=== PATIENT | female | born 1990 | race African-American/Black ===

== ENCOUNTER 2019-02-14 16:24 | Outpatient (CLI) | payer MEDICAID ==
[2019-02-14] MEDS ORDERED: RINGERS SOLUTION,LACTATED 1,000 ML IV PRN (17:12)
[2019-02-14] MEDS ORDERED: PROMETHAZINE HCL INJ 25 MG/1 ML VIAL IV ONE (17:12)
[2019-02-14] MEDS ORDERED: RINGERS SOLUTION,LACTATED 1,000 ML IV ONE (17:12)
[2019-02-14] MEDS ORDERED: PROMETHAZINE HCL INJ 25 MG/1 ML VIAL ONE (17:21)
[2019-02-14 17:28] LABS: APPEARANCE,URINE SLIGHTLY-CLOUDY; BILIRUBIN,URINE NEGATIVE (NEGATIVE); COLOR,URINE YELLOW; GLUCOSE, URINE NEGATIVE (NEGATIVE); KETONES,URINE NEGATIVE (NEGATIVE); LEUKOCYTE ESTERASE,URINE TRACE (NEGATIVE); NITRITE,URINE NEGATIVE (NEGATIVE); PROTEIN,URINE NEGATIVE (NEGATIVE); URINE SPECIFIC GRAVITY 1.021
[2019-02-14 18:05] LABS: URINE AMPHETAMINES SCREEN NEGATIVE; URINE BARBITURATES SCREEN NEGATIVE; URINE BENZODIAZEPINES SCREEN NEGATIVE; URINE COCAINE SCREEN NEGATIVE; URINE MARIJUANA (THC) SCREEN NEGATIVE; URINE METHADONE SCREEN NEGATIVE; URINE PHENCYCLIDINE SCREEN NEGATIVE
== END 2019-02-14 18:54 | disposition home or self-care (01) ==
LOC: LC 16:24
PROVIDERS: ATTEND Obstetrics & Gynecology
PROC: 4A1HXCZ Monitoring of Products of Conception, Cardiac Rate, External Approach (ICD-10-PCS; principal; 2019-02-14)
DX: O30.003 Twin pregnancy, unspecified number of placenta and unspecified number of amniotic sacs, third trimester (principal); O99.283 Endocrine, nutritional and metabolic diseases complicating pregnancy, third trimester; E86.0 Dehydration; O21.2 Late vomiting of pregnancy; Z3A.34 34 weeks gestation of pregnancy
CPT/HCPCS: 59025; 81001; 80307; J2550

== ENCOUNTER 2019-02-21 16:08 | Inpatient (IN) | payer MEDICAID ==
--- NOTE | 2019-02-21 16:37 | Non Stress Test Report ---
Non Stress Test Datetime Report Generated by CPN: 02/21/2019 16:37 DEMOGRAPHIC Test Number: 1 EGA NST: 34.3 INDICATION Indication for Study: Multiple Gestation; Ordered by Provider VITAL SIGNS Temperature - NST: 97.7 Pulse - NST: 90 RESP - NST: 20 NBPSYS NST: 112 NBPDIA NST: 69 MONITORING Monitor Explained: Monitor Explained; Test Explained; Patient Verbalized Understanding Time on Monitor: 02/14/2019 16:45 Time off Monitor: 02/14/2019 18:50 NST Duration: 125 NST INTERVENTIONS NST Interventions: IV Fluids; Reposition Patient Physician Notified NST: Dr Abdi BABY A: [id number] BABY A Movement : Present Contraction Frequency : occ FHR Baseline : 145 Accelerations : 15X15 Decelerations : None Variability : Moderate 6-25bpm NST Review: Meets Criteria for Reactive NST NST Review and Verified By : Imelda Camp RNC NST Results: Reactive BABY B Movement: Present FHR Baseline: 135 Accelerations: 15X15 Decelerations: None Variability: Moderate 6-25bpm NST Review: Meets Criteria for Reactive NST NST Results: Reactive NST COMMENTS NST Comments: Baby B strip with broken tracing when accels. Reviewed by Dr Abdi, both A_B reactive NST REPORT Report Trigger: Send Report
[2019-02-21 16:44] LABS: APPEARANCE,URINE CLEAR; BILIRUBIN,URINE NEGATIVE (NEGATIVE); COLOR,URINE YELLOW; GLUCOSE, URINE NEGATIVE (NEGATIVE); KETONES,URINE NEGATIVE (NEGATIVE); LEUKOCYTE ESTERASE,URINE NEGATIVE (NEGATIVE); NITRITE,URINE NEGATIVE (NEGATIVE); PROTEIN,URINE NEGATIVE (NEGATIVE); URINE SPECIFIC GRAVITY 1.015; UROBILINOGEN,URINE NEGATIVE mg/dL (<2.0)
[2019-02-21 17:07] LABS: URINE AMPHETAMINES SCREEN NEGATIVE; URINE BARBITURATES SCREEN NEGATIVE; URINE BENZODIAZEPINES SCREEN NEGATIVE; URINE COCAINE SCREEN NEGATIVE; URINE MARIJUANA (THC) SCREEN NEGATIVE; URINE METHADONE SCREEN NEGATIVE; URINE PHENCYCLIDINE SCREEN NEGATIVE
[2019-02-21] MEDS ORDERED: GLUCAGON,HUMAN RECOMB 1 MG INJ SUBCUT PRN (19:30)
[2019-02-21] MEDS ORDERED: DEXTROSE 40% GEL 15 GM TUBE PO PRN ×2 (19:30)
[2019-02-21] MEDS ORDERED: DEXTROSE 50%-WATER 25 GM/50 ML DISP.SYRIN IV PRN ×2 (19:30)
[2019-02-21] MEDS ORDERED: AZITHROMYCIN 500 MG in DEXTROSE 5%-WATER 250 ML IV PRN (19:32)
[2019-02-21] MEDS ORDERED: AZITHROMYCIN INJ 500 MG VIAL IV ONE (19:34)
[2019-02-21] MEDS ORDERED: CITRIC ACID/SODIUM CITRATE ORAL SOLN 15 ML UDCUP ONE (19:34)
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
--- NOTE | 2019-02-21 19:52 | RADIOLOGY REPORT (SQ) ---
EXAM DESCRIPTION: U/S PROFILE W/O STRESS; U/S [id number] + EACH ADDIT GEST COMPLETED DATE/TIME: 02/21/2019 7:05 pm REASON FOR STUDY: DC/DA TIUP, NR baby A, growth restriction; BPP TWINS COMPARISON: None. TECHNIQUE: Limited husain-scale realtime and static images of the fetus to measure specified parameter s. LIMITATIONS: None. FINDINGS: Fetus a: HEART RATE: 143 beats per minute. TESHA: 10.1 cm. BREATHING MOVEMENT: 2 points. MOVEMENT: 2 points. POSTURE AND TONE: 2 points. QUALITATIVE TESHA: 2 points. OTHER: Breech presentation. Fetus B: HEART RATE: 149 beats per minute. TESHA: 11.1 cm. BREATHING MOVEMENT: 2 points. MOVEMENT: 2 points. POSTURE AND TONE: 2 points. QUALITATIVE TESHA: 2 points. OTHER: Breech presentation. IMPRESSION: BIOPHYSICAL PROFILE: 8/8. For for both fetus a and fetus B. Trimester of : Third - 28 weeks to delivery COMMENT: BREATHING MOVEMENTS: 2 POINTS: PRESENT 0 POINTS: ABSENT MOTION: 2 POINTS: PRESENT 0 POINTS: ABSENT TONE: 2 POINTS: PRESENT 0 POINTS: ABSENT AMNIOTIC FLUID VOLUME: 2 POINTS: LARGEST POCKET GREATER THAN 2 CM DEPTH. 0 POINTS: NO POCKET OF 2 CM. TECHNICAL DOCUMENTATION: JOB ID: [id number] [employer]- All Rights Reserved Reading location - IP/workstation name: [email or web address]
--- NOTE | 2019-02-21 19:52 | RADIOLOGY REPORT (SQ) ---
EXAM DESCRIPTION: U/S PROFILE W/O STRESS; U/S [id number] + EACH ADDIT GEST COMPLETED DATE/TIME: 02/21/2019 7:05 pm REASON FOR STUDY: DC/DA TIUP, NR baby A, growth restriction; BPP TWINS COMPARISON: None. TECHNIQUE: Limited husain-scale realtime and static images of the fetus to measure specified parameter s. LIMITATIONS: None. FINDINGS: Fetus a: HEART RATE: 143 beats per minute. TESHA: 10.1 cm. BREATHING MOVEMENT: 2 points. MOVEMENT: 2 points. POSTURE AND TONE: 2 points. QUALITATIVE TESHA: 2 points. OTHER: Breech presentation. Fetus B: HEART RATE: 149 beats per minute. TESHA: 11.1 cm. BREATHING MOVEMENT: 2 points. MOVEMENT: 2 points. POSTURE AND TONE: 2 points. QUALITATIVE TESHA: 2 points. OTHER: Breech presentation. IMPRESSION: BIOPHYSICAL PROFILE: 8/8. For for both fetus a and fetus B. Trimester of : Third - 28 weeks to delivery COMMENT: BREATHING MOVEMENTS: 2 POINTS: PRESENT 0 POINTS: ABSENT MOTION: 2 POINTS: PRESENT 0 POINTS: ABSENT TONE: 2 POINTS: PRESENT 0 POINTS: ABSENT AMNIOTIC FLUID VOLUME: 2 POINTS: LARGEST POCKET GREATER THAN 2 CM DEPTH. 0 POINTS: NO POCKET OF 2 CM. TECHNICAL DOCUMENTATION: JOB ID: [id number] [employer]- All Rights Reserved Reading location - IP/workstation name: [email or web address]
[2019-02-21] MEDS ORDERED: LIDOCAINE 2% INJ-PF (20 MG/ML) 10 ML AMPUL ONE ×2 (19:56→20:40)
[2019-02-21] MEDS ORDERED: OXYTOCIN 10 UNIT/ML VIAL ONE (19:57)
[2019-02-21] MEDS ORDERED: FENTANYL CITRATE INJ/PF 100 MCG/2 ML AMPUL ONE (19:57)
[2019-02-21] MEDS ORDERED: EPHEDRINE SULFATE INJ 50 MG/1 ML AMPULE ONE ×2 (19:57→20:05)
[2019-02-21] MEDS ORDERED: KETOROLAC TROMETHAMINE INJ/PF 30 MG/1 ML SDV ONE (19:57)
[2019-02-21] MEDS ORDERED: MIDAZOLAM 2 MG/2 ML INJ ONE (19:58)
[2019-02-21] MEDS ORDERED: ONDANSETRON HCL INJ/PF 4 MG/2 ML SDV ONE (19:58)
[2019-02-21] MEDS ORDERED: OXYTOCIN/NORMAL SALINE 20 UNIT/1,000 ML RTUINJ ONE (19:58)
[2019-02-21] MEDS ORDERED: ACETAMINOPHEN 1,000 MG/100 ML RTUPB IV ONE (19:58)
[2019-02-21 20:03] LABS: ABSOLUTE EOSINOPHILS # (AUTO) 0.2 10^3/uL (0.0-0.6); ABSOLUTE LYMPHOCYTES (AUTO) 2.8 10^3/uL (0.5-4.7); ABSOLUTE NEUT (AUTO) 7.4 10^3/uL (1.7-8.2); BASOPHILS % (AUTO) 0.2 % (0-2); EOSINOPHILS % (AUTO) 1.8 % (0-6); HEMATOCRIT 34.2 % (36.0-47.0); HEMOGLOBIN 11.4 g/dL (12.0-15.5); LYMPHOCYTES % (AUTO) 24.5 % (13-45); MEAN CORPUSCULAR HEMOGLOBIN 29.3 pg (27.0-33.4); MEAN CORPUSCULAR HGB CONC 33.3 g/dL (32.0-36.0); MEAN CORPUSCULAR VOLUME 88 fl (80-97); MONOCYTES % (AUTO) 8.5 % (3-13); PLATELET COUNT 189 10^3/uL (150-450); RED CELL DISTRIBUTION WIDTH 13.5 % (11.5-14.0); TOTAL CELLS COUNTED % (AUTO) 100 %; WHITE BLOOD COUNT 11.3 10^3/uL (4.0-10.5)
[2019-02-21] MEDS ORDERED: BUPIVACAINE HCL 0.5 % INJ/PF 30 ML SDV ONE (20:14)
[2019-02-21] MEDS ORDERED: MISOPROSTOL 0.2 MG TABLET ONE (20:44)
[2019-02-21 21:20] LABS: RUBELLA INTERPRETATION POSITIVE
[2019-02-21] MEDS ORDERED: DIPH/PERTUSS(ACELL)/TETANUS VAC/PF 0.5 ML SYR (>=10YO) IM PRN (21:40)
[2019-02-21] MEDS ORDERED: OXYTOCIN/NORMAL SALINE 20 UNIT/1,000 ML RTUINJ IV PRN (21:40)
[2019-02-21] MEDS ORDERED: ACETAMINOPHEN 325 MG TABLET PO PRN (21:40)
[2019-02-21] MEDS ORDERED: PROMETHAZINE HCL INJ 25 MG/1 ML VIAL IV PRN (21:40)
[2019-02-21] MEDS ORDERED: RINGERS SOLUTION,LACTATED 1,000 ML IV PRN (21:40)
[2019-02-21] MEDS ORDERED: MEASLES,MUMPS&RUBELLA VACC/PF 0.5 ML VIAL SUBCUT PRN (21:40)
[2019-02-21] MEDS ORDERED: ACETAMINOPHEN 1,000 MG/100 ML RTUPB IV PRN (21:40)
[2019-02-21] MEDS ORDERED: SIMETHICONE 80 MG TAB.CHEW PO PRN (21:40)
[2019-02-21] MEDS ORDERED: OXYCODONE-ACETAMINOPHEN 5-325 MG TABLET PO PRN (21:40)
[2019-02-21] MEDS ORDERED: MEPERIDINE HCL/PF INJ 25 MG/1 ML DISP.SYRIN ONE (22:19)
[2019-02-21 22:47] LABS: CHLAM PCR NOT DETECTED (NOT DETECT)
--- NOTE | 2019-02-21 22:47 | Brief Operative Note ---
BRIEF OPERATIVE REPORT DATE OF SURGERY: 02/21/19 TIME OF SURGERY: 20:00 PREOPERATIVE DIAGNOSIS: , 35+3ega, DC/DA TIUP, 20% DIscordance, Breech/Breech, Active labor POSTOPERATIVE DIAGNOSIS: TIFFANY, delivered SURGEON: NIK REYNODLS FINDINGS: no evidence of septate uterus, normal appearing uterus, normal appearing tubes/ovaries. VFI delivered 2036, VMI 2038 on 02/21/2019. Both babies in turner breech presentation. Apgars 9/9 and weigth 1758g (3#14oz) on baby A, Apgars 9/9 and weight 2259g (5#1oz) on Baby B, IVF 2000ml, UOP 200ml COMPLICATIONS: none ESTIMATED BLOOD LOSS: 736 TISSUE REMOVED OR ALTERED: placenta and cord x 2 TECHNICAL PROCEDURE: Primary Section
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
[2019-02-22] MEDS: HYDROMORPHONE HCL INJ/PF 2 MG/ML AMPULE IV PRN ×2 (00:15→06:09)
[2019-02-22] MEDS: OXYCODONE-ACETAMINOPHEN 5-325 MG TABLET PO PRN ×3 (02:41→18:06)
[2019-02-22] MEDS: KETOROLAC TROMETHAMINE INJ/PF 30 MG/1 ML SDV IV SCH ×3 (04:48→20:06)
[2019-02-22 07:07] LABS: HEMATOCRIT 30.5 % (36.0-47.0); HEMOGLOBIN 10.3 g/dL (12.0-15.5); MEAN CORPUSCULAR HEMOGLOBIN 29.4 pg (27.0-33.4); MEAN CORPUSCULAR HGB CONC 33.9 g/dL (32.0-36.0); MEAN CORPUSCULAR VOLUME 87 fl (80-97); PLATELET COUNT 148 10^3/uL (150-450); RED BLOOD COUNT 3.52 10^6/uL (3.72-5.28); RED CELL DISTRIBUTION WIDTH 13.2 % (11.5-14.0); WHITE BLOOD COUNT 12.9 10^3/uL (4.0-10.5)
[2019-02-22] MEDS: DOCUSATE SODIUM 100 MG CAPSULE PO SCH ×2 (09:39→18:07)
[2019-02-22] MEDS: PRENATAL VITAMIN W DHA CAPSULE PO SCH (09:39)
--- NOTE | 2019-02-22 10:57 | PDOC PROGRESS REPORT ---
Subjective-OB Progress Note for:: 02/22/19 Subjective: Sitting up in bed, williamson out, pain under control, mild nausea but able to keep liquids down, nurse in room helping her pump breasts, no c/o Physical Exam (OB) Vital Signs: Temp Pulse Resp BP Pulse Ox 98.0 F 74 18 123/77 99 02/22/19 04:35 02/22/19 04:35 02/22/19 04:35 02/22/19 04:35 02/22/19 04:35 Intake & Output 02/21/19 02/22/19 02/23/19 06:59 06:59 06:59 Output Total 800 Balance -800 - PIH/Pre-Eclampsia Clonus: Negative Headache: Absent Epigastric Pain: No Visual Changes: No - Incision: Well Approximated Closure Type: Surgical Glue - Lochia Lochia Amount: Scant < 10 ml Lochia Color: Rubra/Red - Abdomen Description: Tender, Soft Hernia Present: No Fundal Description: Firm, Midline Fundal Height: u/u - u/2 Objective-Diagnostic Laboratory: 02/22/19 06:39 02/21/19 02/21/19 02/21/19 16:19 19:44 19:44 WBC 11.3 H RBC 3.90 Hgb 11.4 L Hct 34.2 L MCV 88 MCH 29.3 MCHC 33.3 RDW 13.5 Plt Count 189 Seg Neutrophils % 65.0 Lymphocytes % 24.5 Monocytes % 8.5 Eosinophils % 1.8 Basophils % 0.2 Absolute Neutrophils 7.4 Absolute Lymphocytes 2.8 Absolute Monocytes 1.0 Absolute Eosinophils 0.2 Absolute Basophils 0.0 Urine Color YELLOW Urine Appearance CLEAR Urine pH 7.0 Ur Specific [place] 1.015 Urine Protein NEGATIVE Urine Glucose (UA) NEGATIVE Urine Ketones NEGATIVE Urine Blood NEGATIVE Urine Nitrite NEGATIVE Ur Leukocyte Esterase NEGATIVE Urine WBC (Auto) 1 Urine RBC (Auto) 0 Blood Type O POSITIVE Antibody Screen NEGATIVE 02/22/19 06:39 WBC 12.9 H RBC 3.52 L Hgb 10.3 L Hct 30.5 L MCV 87 MCH 29.4 MCHC 33.9 RDW 13.2 Plt Count 148 L Seg Neutrophils % Lymphocytes % Monocytes % Eosinophils % Basophils % Absolute Neutrophils Absolute Lymphocytes Absolute Monocytes Absolute Eosinophils Absolute Basophils Urine Color Urine Appearance Urine pH Ur Specific [place] Urine Protein Urine Glucose (UA) Urine Ketones Urine Blood Urine Nitrite Ur Leukocyte Esterase Urine WBC (Auto) Urine RBC (Auto) Blood Type Antibody Screen Assessment and Plan(PN) - Assessment and Plan (1) Active labor Qualifiers: Fetus number: fetus 2 of multiple gestation Qualified Code(s): O60.10X2 - labor with delivery, unspecified trimester, fetus 2 Is this a current diagnosis for this admission?: Yes (2) Dichorionic diamniotic twin gestation Qualifiers: Trimester: first trimester Qualified Code(s): O30.041 - Twin , dichorionic/diamniotic, first trimester Is this a current diagnosis for this admission?: Yes (3) S/P primary low transverse Is this a current diagnosis for this admission?: Yes - Time Spent with Patient Time with patient: Less than 15 minutes Medications reviewed and adjusted accordingly: Yes - Disposition Anticipated Discharge: Home Within: within 24 hours
--- NOTE | 2019-02-22 16:08 | Delivery Summary ---
Del Sum A-C Datetime Report Generated by CPN: 02/22/2019 16:08 DELIVERY PERSONNEL DELIVERY PERSONNEL: [id number] Delivery Doctor:: Lyly Gill MD Anesthesiologist:: Paul Kinney MD DIRECTOR RIVER RESTORATION:: Diego Nick, DIRECTOR RIVER RESTORATION DIRECTOR RIVER RESTORATION:: Diego Nick, DIRECTOR RIVER RESTORATION [employer] Attorney:: Tayla Arredondo RN Neonatal Nurse Practitioner:: MARCELLE Sr Hog Room Supervisor/COMMERCIAL ACCOUNT EXECUTIVE: [facility] [employer] Hog Room Supervisor/COMMERCIAL ACCOUNT EXECUTIVE: Mesfin Bill, HUMAN RESOURCES TEAM MEMBER MATERNAL INFORMATION Delivery Anesthesia: Epidural Medications After Delivery: Pitocin Drip 20 Units/1000ml NSS; Cytotec 1000mcg Per Rectum/Vagina Estimated Blood Loss (ml): 736 Delivery QBL Comment: 736 Maternal Complications: Other Complication Details: twins, breach LABOR SUMMARY EDC: 03/25/2019 00:00 No. Babies in Womb: 2 Attempted: No Labor Anesthesia: Epidural LABOR INFORMATION Reason for Induction: Not Applicable Oxytocin: N/A Group B Beta Strep: unknown Steroids Given: None Reason Steroids Not Administered: Not Applicable MEMBRANES Membranes Rupture Method: Artificial Rupture of Membranes: 02/21/2019 20:36 Length of Rupture (hr): 0.02 Amniotic Fluid Color: Clear STAGES OF LABOR Stage 3 hr: 0 Stage 3 min: 4 VAGINAL DELIVERY Laceration Repair: Not Applicable CSECTION DELIVERY Primary Indication: Breech Presentation Other Primary Indication: Active labor Secondary Indication: Multiple Gestation CSection Urgency: Non-Scheduled CSection Incidence: Primary Labor: Labor CSection Incision: Lower Uterine Transverse Uterine Closure: Double-layer closure BABY A INFORMATION Infant Delivery Date/Time: 02/21/2019 20:37 Method of Delivery: Born in Route : No : N/A Forceps: N/A Vacuum Extraction: N/A Shoulder Dystocia : No PRESENTATION/POSITION BABY A Presentation: Breech PLACENTA INFORMATION BABY A Placenta Delivery Time : 02/21/2019 20:41 Placenta Method of Delivery: Manual Removal Placenta Status: Delivered SCORES BABY A Heart Rate 1 min: >100 bpm Resp Effort 1 min: Good Cry Reflex Irritability 1 min: Cough or Sneeze or Pulls Away Muscle Tone 1 min: Active Motion Color 1 min: Body [place], Extremities Blue SCORE 1 MIN: 9 Heart Rate 5 min: >100 bpm Resp Effort 5 min: Good Cry Reflex Irritability 5 min: Cough or Sneeze or Pulls Away Muscle Tone 5 min: Active Motion Color 5 min: Body [place], Extremities Blue SCORE 5 MIN: 9 INFORMATION BABY A Gestational Age at Delivery: 35.3 Gestational Status: Late - 34- 36.6 Weeks Infant Outcome : Liveborn Infant Condition : Stable Infant Sex: Female IDENTIFICATION BABY A Verification Date/Time: 02/21/2019 23:08 ID Band Number: [id number] Mother's Name Verified: Yes RN Verifying : Esther,RN A Rita, RN WEIGHT/LENGTH BABY A Infant Birthweight (gm): 1758 Infant Weight (lb): 3 Infant Weight (oz): 14 Infant Length (in): 16.00 Infant Length (cm): 40.64 CORD INFORMATION BABY A No. Cord Vessels: 3 Nuchal Cord : Around Neck x1, Loose Cord Blood Taken: Yes-For Storage (Mom's Blood type +) BABY B INFORMATION Infant Delivery Date/Time: 02/21/2019 20:39 Method of Delivery : Born in Route : No : N/A Forceps : N/A Vacuum Extraction: N/A Shoulder Dystocia : No SHOULDER DYSTOCIA BABY B Delivery Date/Time: 02/21/2019 20:39 PRESENTATION/POSITION BABY B Presentation : Breech ROM/PLACENTA INFO BABY B Placenta Method of Delivery: Spontaneous Placental Status : Delivered SCORES BABY B Heart Rate 1 min: >100 bpm Resp Effort 1 min: Good Cry Reflex Irritability 1 min: Cough or Sneeze or Pulls Away Muscle Tone 1 min: Active Motion Color 1 min: Body [place], Extremities Blue SCORE 1 MIN: 9 Heart Rate 5 min: >100 bpm Resp Effort 5 min: Good Cry Reflex Irritability 5 min: Cough or Sneeze or Pulls Away Muscle Tone 5 min: Active Motion Color 5 min: Body [place], Extremities Blue SCORE 5 MIN: 9 INFORMATION BABY B Gestational Age at Delivery: 35.3 Gestational Status : Late - 34- 36.6 Weeks Infant Outcome : Liveborn Infant Condition : Stable Sex : Male IDENTIFICATION BABY B Verification Date/Time: 02/21/2019 23:10 ID Band Number : [id number] Mother's Name Verified: Yes RN Verifying : RAYMOND Santana RN WEIGHT/LENGTH BABY B Infant Birthweight (gm): 2297 Weight (lb) : 5 Weight (oz): 1 Infant Length (in): 18.50 Length (cm): 46.99 CORD INFORMATION BABY B Cord Blood Taken : Yes-For Storage (Mom's Blood Type +)
--- NOTE | 2019-02-22 18:00 | Delivery Summary ---
Del Sum A-C Datetime Report Generated by CPN: 02/22/2019 18:00 DELIVERY PERSONNEL DELIVERY PERSONNEL: [id number] Delivery Doctor:: Lyly Gill MD Anesthesiologist:: Paul Kinney MD MEDICAL AUDITOR:: Diego Nick, MEDICAL AUDITOR MEDICAL AUDITOR:: Diego Nick, MEDICAL AUDITOR Guillotine Operator:: Tayla Arredondo RN Neonatal Nurse Practitioner:: MARCELLE Sr Bow Maker Gift Wrapping/BRILLIANDEER LOPPER: [facility] [place] Bow Maker Gift Wrapping/BRILLIANDEER LOPPER: Mesfin Bill, CIVIL PREPAREDNESS OFFICER MATERNAL INFORMATION Delivery Anesthesia: Epidural Medications After Delivery: Pitocin Drip 20 Units/1000ml NSS; Cytotec 1000mcg Per Rectum/Vagina Estimated Blood Loss (ml): 736 Delivery QBL: 730 Delivery QBL Comment: 736 Maternal Complications: Other Complication Details: twins, breach LABOR SUMMARY EDC: 03/25/2019 00:00 No. Babies in Womb: 2 Attempted: No Labor Anesthesia: Epidural LABOR INFORMATION Reason for Induction: Not Applicable Oxytocin: N/A Group B Beta Strep: unknown Steroids Given: None Reason Steroids Not Administered: Not Applicable MEMBRANES Membranes Rupture Method: Artificial Rupture of Membranes: 02/21/2019 20:36 Length of Rupture (hr): 0.02 Amniotic Fluid Color: Clear STAGES OF LABOR Stage 3 hr: 0 Stage 3 min: 4 VAGINAL DELIVERY Laceration Repair: Not Applicable CSECTION DELIVERY Primary Indication: Breech Presentation Other Primary Indication: Active labor Secondary Indication: Multiple Gestation CSection Urgency: Non-Scheduled CSection Incidence: Primary Labor: Labor CSection Incision: Lower Uterine Transverse Uterine Closure: Double-layer closure BABY A INFORMATION Infant Delivery Date/Time: 02/21/2019 20:37 Method of Delivery: Born in Route : No : N/A Forceps: N/A Vacuum Extraction: N/A Shoulder Dystocia : No PRESENTATION/POSITION BABY A Presentation: Breech PLACENTA INFORMATION BABY A Placenta Delivery Time : 02/21/2019 20:41 Placenta Method of Delivery: Manual Removal Placenta Status: Delivered SCORES BABY A Heart Rate 1 min: >100 bpm Resp Effort 1 min: Good Cry Reflex Irritability 1 min: Cough or Sneeze or Pulls Away Muscle Tone 1 min: Active Motion Color 1 min: Body Meckling, Extremities Blue SCORE 1 MIN: 9 Heart Rate 5 min: >100 bpm Resp Effort 5 min: Good Cry Reflex Irritability 5 min: Cough or Sneeze or Pulls Away Muscle Tone 5 min: Active Motion Color 5 min: Body Meckling, Extremities Blue SCORE 5 MIN: 9 INFANT INFORMATION BABY A Gestational Age at Delivery: 35.3 Gestational Status: Late - 34- 36.6 Weeks Infant Outcome : Liveborn Condition : Stable Sex: Female IDENTIFICATION BABY A Infant Verification Date/Time: 02/21/2019 23:08 ID Band Number: [id number] Mother's Name Verified: Yes Infant RN Verifying Infant: EstherRN A Rita, RN WEIGHT/LENGTH BABY A Birthweight (gm): 1758 Weight (lb): 3 Infant Weight (oz): 14 Infant Length (in): 16.00 Length (cm): 40.64 CORD INFORMATION BABY A No. Cord Vessels: 3 Nuchal Cord : Around Neck x1, Loose Cord Blood Taken: Yes-For Storage (Mom's Blood type +) BABY B INFORMATION Delivery Date/Time: 02/21/2019 20:39 Method of Delivery : Born in Route : No : N/A Forceps : N/A Vacuum Extraction: N/A Shoulder Dystocia : No SHOULDER DYSTOCIA BABY B Delivery Date/Time: 02/21/2019 20:39 PRESENTATION/POSITION BABY B Presentation : Breech ROM/PLACENTA INFO BABY B Placenta Method of Delivery: Spontaneous Placental Status : Delivered SCORES BABY B Heart Rate 1 min: >100 bpm Resp Effort 1 min: Good Cry Reflex Irritability 1 min: Cough or Sneeze or Pulls Away Muscle Tone 1 min: Active Motion Color 1 min: Body Meckling, Extremities Blue SCORE 1 MIN: 9 Heart Rate 5 min: >100 bpm Resp Effort 5 min: Good Cry Reflex Irritability 5 min: Cough or Sneeze or Pulls Away Muscle Tone 5 min: Active Motion Color 5 min: Body Meckling, Extremities Blue SCORE 5 MIN: 9 INFORMATION BABY B Gestational Age at Delivery: 35.3 Gestational Status : Late - 34- 36.6 Weeks Outcome : Liveborn Infant Condition : Stable Infant Sex : Male IDENTIFICATION BABY B Infant Verification Date/Time: 02/21/2019 23:10 ID Band Number : [id number] Mother's Name Verified: Yes Infant RN Verifying : RAYMOND Santana AArsenio Gardner RN WEIGHT/LENGTH BABY B Infant Birthweight (gm): 2297 Weight (lb) : 5 Weight (oz): 1 Infant Length (in): 18.50 Infant Length (cm): 46.99 CORD INFORMATION BABY B Cord Blood Taken : Yes-For Storage (Mom's Blood Type +)
[2019-02-22] MEDS: IBUPROFEN 800 MG TABLET PO SCH (20:06)
[2019-02-23] MEDS: IBUPROFEN 800 MG TABLET PO SCH ×3 (01:03→13:42)
[2019-02-23 08:06] LABS: HEPATITS B SURFACE ANTIGEN Negative (Negative); VARICELLA ZOSTER IGG AB 766 index (Immune >16)
--- NOTE | 2019-02-23 08:56 | PDOC DISCHARGE SUMMARY ---
Final Diagnosis Discharge Date: 02/23/19 - POD #2, doing well, no complaints. 35 wk Twins remain in the NICU. pt plans to breast and bottlefeed. - Final Diagnosis (1) Normal course Is this a current diagnosis for this admission?: Yes (2) Active labor Is this a current diagnosis for this admission?: Yes (3) Breech presentation, no version Is this a current diagnosis for this admission?: Yes (4) Dichorionic diamniotic twin gestation Is this a current diagnosis for this admission?: Yes (5) S/P primary low transverse Is this a current diagnosis for this admission?: Yes Discharge Data - Discharge Medication Prescriptions: Ibuprofen [Motrin 800 mg Tablet] 800 mg PO Q6 #60 tablet Home Medications: Pnv with Ca,No.71/Iron/FA [ Vitamin Tablet] 1 each PO DAILY 10/09/14 Ranitidine HCl [Zantac 75 mg Tablet] 1 tab PO DAILY 02/14/19 Ibuprofen [Motrin 800 mg Tablet] 800 mg PO Q6 #60 tablet 02/23/19 Reason(s) for Admission: Labor, Obstetric Complications, Twins Procedures: NST, Ultrasound, Management of Obstetric Complications Intrapartum Procedure(s): : Low Cervical, Transverse - Diagnosis Test Laboratory: Temp Pulse Resp BP Pulse Ox 98.3 F 91 18 112/55 L 99 02/23/19 04:26 02/23/19 04:26 02/23/19 04:26 02/23/19 04:26 02/23/19 04:26 02/21/19 02/21/19 02/22/19 16:19 19:44 06:39 RBC 3.90 3.52 L Hgb 11.4 L 10.3 L Hct 34.2 L 30.5 L Urine Opiates Screen NEGATIVE - Discharge information/Instructions Discharge Activity: Activity As Tolerated, No Driving, No Lifting Over 10 Pounds, Pelvic Rest Discharge Diet: As Tolerated, Regular Disposition: HOME, SELF-CARE Follow up with: [facility] in: 1, Weeks
[2019-02-23] MEDS: PRENATAL VITAMIN W DHA CAPSULE PO SCH (10:00)
[2019-02-23] MEDS: DOCUSATE SODIUM 100 MG CAPSULE PO SCH (10:00)
[2019-02-23 14:54] VITALS: BP 105/65
== END 2019-02-23 17:01 | disposition home or self-care (01) | DRG 786 ==
LOC: LC 16:08 → LR 19:38 → 2S 23:40
PROVIDERS: ADMIT Student in an Organized Health Care Education/Training Program; ATTEND Student in an Organized Health Care Education/Training Program
PROC: 10D00Z1 Extraction of Products of Conception, Low, Open Approach (ICD-10-PCS; principal; 2019-02-21)
DX: O30.043 Twin pregnancy, dichorionic/diamniotic, third trimester (principal); O60.14X0 Preterm labor third trimester with preterm delivery third trimester, not applicable or unspecified; O32.1XX2 Maternal care for breech presentation, fetus 2; O32.1XX1 Maternal care for breech presentation, fetus 1; O69.81X1 Labor and delivery complicated by cord around neck, without compression, fetus 1; Z3A.35 35 weeks gestation of pregnancy; Z37.2 Twins, both liveborn
CPT/HCPCS: 1961; 36415; 76802; 76819; 80307; 81001; 85025; 85027; 86592; 86762; 86787; 86850; 86900; 86901; 87081; 87340; 87491; 87591; 88307; 94760; 94799; J0131; J0456; J1170; J1885; J2175; J2250; J2405; J2550; J2590; J3010; J3490; J7120

== ENCOUNTER 2019-10-24 09:24 | Emergency (ER) | payer MEDICAID ==
--- NOTE | 2019-10-24 10:04 | ER Document Report ---
HPI - HPI Time Seen by Provider: 10/24/19 10:00 Pain Level: 3 Context: 29-year-old female presents with sore throat for the past 2-3 days. Patient has a little bit of coughing. Patient states she has been unable to eat for the past couple days. Denies any nausea/vomiting, abdominal pain, fever. States she has had strep and mono in the past and thinks that this is one or the other. - REPRODUCTIVE Reproductive: DENIES: : Past Medical History - Social History Smoking Status: Unknown if Ever Smoked Chew tobacco use (# tins/day): No Frequency of alcohol use: None Drug Abuse: None Family History: Malignancy Patient has suicidal ideation: No Patient has homicidal ideation: No - Past Medical History Cardiac Medical History: Denies: Hx Coronary Artery Disease, Hx Heart Attack, Hx Hypertension Pulmonary Medical History: Reports: Hx Asthma - as child Denies: Hx Bronchitis, Hx COPD, Hx Pneumonia Neurological Medical History: Denies: Hx Cerebrovascular Accident, Hx Seizures Musculoskeletal Medical History: Denies Hx Arthritis - Immunizations Hx Diphtheria, Pertussis, Tetanus Vaccination: Yes Vertical Provider Document - CONSTITUTIONAL Agree With Documented VS: Yes Notes: GENERAL: Well-appearing, well-nourished and in no acute distress. HEAD: Atraumatic, normocephalic. EYES: Pupils equal round and reactive to light, extraocular movements intact, sclera anicteric, conjunctiva are normal. ENT: Tonsillar hypertrophy with erythema with exudates. No trismus. No muffled voice. Uvula midline without edema.. Moist mucous membranes. NECK: Normal range of motion, supple without lymphadenopathy or JVD. LUNGS: Breath sounds clear to auscultation bilaterally and equal. No wheezes rales or rhonchi. HEART: Regular rate and rhythm without murmurs, rubs or gallops. EXTREMITIES: Normal range of motion, no pitting or edema. No clubbing or cyanosis. NEUROLOGICAL: Cranial nerves II through XII grossly intact. Normal speech, normal gait. PSYCH: Normal mood, normal affect. SKIN: Warm, Dry, normal turgor, no rashes or lesions noted. - INFECTION CONTROL TRAVEL OUTSIDE OF THE [place] IN LAST 30 DAYS: No Course - Re-evaluation Re-evalutation: 10/24/19 Nontoxic well appearing 29 y/o female presents with sore throat. 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 Strep neg. [place] positive. Pt given symptomatic relief. Pt also given strict return precautions and close follow up with PCP. Pt voices understanding and agrees with plan of care. - Vital Signs Vital signs: Temp Pulse Resp BP Pulse Ox 99.1 F 78 18 134/77 H 99 10/24/19 09:53 10/24/19 09:53 10/24/19 09:53 10/24/19 09:53 10/24/19 09:53 Discharge - Discharge Clinical Impression: Mononucleosis Qualifiers: Infectious mononucleosis etiology: unspecified organism Infectious mononucleosis complication: without complication Qualified Code(s): B27.90 - Infectious mononucleosis, unspecified without complication Condition: Stable Disposition: HOME, SELF-CARE Instructions: Mononucleosis ([facility]), Sore Throat ([facility]) Additional Instructions: Your strep test was negative however your mono test was positive. Please take ibuprofen as prescribed. Take tylenol for breakthrough pain. Please follow up with your primary care doctor or one of the clinics listed in 1-2 weeks. Return immediately to ER for any worsening symptoms, including worsening pain, inability to swallow, inability to open your mouth, fever, abdominal pain, nausea/vomiting, chest pain, shortness of breath, or any other symptoms that are concerning to you. Prescriptions: Ibuprofen [Motrin 800 mg Tablet] 800 mg PO Q8H PRN #30 tab PRN Reason: Forms: Return to Work Referrals: NIK REYNOLDS MD [ACTIVE STAFF] - Follow up in 3-5 days
[2019-10-24] MEDS ORDERED: DEXAMETHASONE SOD PHOS INJ 10 MG/1 ML VIAL IM ONE (13:21)
[2019-10-24 13:43] VITALS: BP 134/74
== END 2019-10-24 13:41 | disposition home or self-care (01) ==
LOC: ER 09:24
DX: B27.90 Infectious mononucleosis, unspecified without complication (principal); J02.9 Acute pharyngitis, unspecified; R05 Cough; J35.1 Hypertrophy of tonsils
CPT/HCPCS: 36415; 87070; 87880; 81025; 86308; J1100; 96372; 99283

== ENCOUNTER 2019-10-30 11:44 | Emergency (ER) | payer MEDICAID ==
--- NOTE | 2019-10-30 13:06 | ER Document Report ---
ED Flu Like - General Chief Complaint: Flu Symptoms Stated Complaint: BODY ACHE/CHILLS Time Seen by Provider: 10/30/19 13:00 Notes: CHIEF COMPLAINT: Cough HPI: 29-year-old female presenting to the emergency department complaining of cough over the last week with some shortness of breath. Patient states she was diagnosed with mononucleosis 10 days ago but throat feels better. No definitive fevers but has had chills. Both of her children are also sick with cough and runny nose. ROS: See HPI - all other systems were reviewed and are otherwise negative Constitutional: no fever Eyes: no drainage, no blurred vision ENT: + runny nose, no sore throat Cardiovascular: no chest pain Resp: + SOB, + cough GI: no vomiting, no diarrhea, no abdominal pain : no dysuria Integumentary: no rash Allergy: no hives Musculoskeletal: no extremity pain or swelling Neurological: no numbness/tingling, no weakness MEDICATIONS: I agree with the patient medications as charted by the RN. ALLERGIES: I agree with the allergies as charted by the RN. PAST MEDICAL HISTORY/PAST SURGICAL HISTORY: Reviewed and agree as charted by RN. SOCIAL HISTORY: Reviewed and agree as charted by RN. FAMILY HISTORY: No significant familial comorbid conditions directly related to patient complaint EXAM: Reviewed vital signs as charted by RN. CONSTITUTIONAL: Alert and oriented and responds appropriately to questions. Well-appearing; well-nourished, mild distress secondary to anxiety HEAD: Normocephalic; atraumatic EYES: PERRL; Conjunctivae clear, sclerae non-icteric ENT: normal nose; no rhinorrhea; moist mucous membranes; pharynx without lesions noted, no uvula edema or deviation, no tonsillar hypertrophy, phonation normal NECK: Supple without meningismus; non-tender; no cervical lymphadenopathy, no masses CARD: RRR; no murmurs, no clicks, no rubs, no gallops; symmetric distal pulses RESP: Normal chest excursion without splinting or tachypnea; breath sounds clear and equal bilaterally; no wheezes, no rhonchi, no rales, pulse oximetry 96% on room air not hypoxic, congested cough is noted ABD/GI: Normal bowel sounds; non-distended; soft, non-tender, no rebound, no guarding; no palpable organomegaly or masses. BACK: The back appears normal and is non-tender to palpation, there is no CVA tenderness EXT: Normal ROM in all joints; non-tender to palpation; no cyanosis, no effusions, no edema SKIN: Normal color for age and race; warm; dry; good turgor; no acute lesions noted NEURO: Moves all extremities equally; Motor and sensory function intact PSYCH: The patient's mood and manner are appropriate. Grooming and personal hygiene are appropriate. MDM: 29-year-old female with upper respiratory symptoms over the last week. Would be outside the window for flu treatment, will obtain chest x-ray to evaluate for pneumonia. Patient was diagnosed with mononucleosis 7 to 10 days ago but states throat feels better. No abdominal pain complaints TRAVEL OUTSIDE OF THE [place] IN LAST 30 DAYS: No - Related Data Allergies/Adverse Reactions: Penicillins Allergy (Severe, Verified 10/24/19 10:00) Hives Past Medical History - Social History Smoking Status: Never Smoker Frequency of alcohol use: None Drug Abuse: None Family History: Malignancy Patient has suicidal ideation: No Patient has homicidal ideation: No - Past Medical History Cardiac Medical History: Denies: Hx Coronary Artery Disease, Hx Heart Attack, Hx Hypertension Pulmonary Medical History: Reports: Hx Asthma - as child Denies: Hx Bronchitis, Hx COPD, Hx Pneumonia Neurological Medical History: Denies: Hx Cerebrovascular Accident, Hx Seizures Musculoskeletal Medical History: Denies Hx Arthritis Past Surgical History: Reports: Hx Section - Immunizations Hx Diphtheria, Pertussis, Tetanus Vaccination: Yes Physical Exam - Vital signs Vitals: Temp Pulse Resp BP Pulse Ox 99.8 F 86 18 128/76 H 96 10/30/19 12:10/30/19 12:10/30/19 12:10/30/19 12:10/30/19 12:01 Course - Re-evaluation Re-evalutation: 10/30/19 13:45 Chest x-ray on my review shows possible left lower lobe pneumonia. Patient is allergic to penicillins will start on Zithromax, albuterol, Mucinex - Vital Signs Vital signs: Temp Pulse Resp BP Pulse Ox 99.8 F 86 18 128/76 H 96 10/30/19 12:10/30/19 12:10/30/19 12:10/30/19 12:10/30/19 12:01 Discharge - Discharge Clinical Impression: Pneumonia Qualifiers: Pneumonia type: due to unspecified organism Laterality: left Lung location: lower lobe of lung Qualified Code(s): J18.9 - Pneumonia, unspecified organism Condition: Stable Disposition: HOME, SELF-CARE Additional Instructions: 1. take the medications as prescribed, if you were prescribed a cough medicine, no driving on narcotics 2. if you were prescribed an Albuterol inhaler, use it as instructed, 2 puffs every 4 hours as needed for cough/wheezing 3. call your primary care provider as soon as possible to schedule recheck appt. in the office. 4. return to the ED for any worsening condition, shortness of breath or continued fever that does not resolve with Motrin/Tylenol Prescriptions: Guaifenesin/Dextromethorphan [Mucinex Dm ER 600-30 mg Tablet] 1 each PO BID #20 tab.er.12h Albuterol Sulfate [Proair HFA Inhalation Aerosol 8.5 gm MDI] 2 puff IH Q4H PRN #1 mdi PRN Reason: Azithromycin [Zithromax 250 mg Tablet] 250 mg PO ASDIR PRN #6 tablet PRN Reason: Referrals: JANAK EMERY MD [ACTIVE STAFF] - Follow up as needed
--- NOTE | 2019-10-30 13:42 | RADIOLOGY REPORT (SQ) ---
EXAM DESCRIPTION: CHEST 2 VIEWS COMPLETED DATE/TIME: 10/30/2019 1:19 pm REASON FOR STUDY: cough COMPARISON: 05/23/2013. EXAM PARAMETERS: NUMBER OF VIEWS: two views TECHNIQUE: Digital Frontal and Lateral radiographic views of the chest acquired. RADIATION DOSE: NA LIMITATIONS: none FINDINGS: LUNGS AND PLEURA: Hazy density in the left lower lobe. Right lung clear. No pleural effu ronald. No pneumothorax. MEDIASTINUM AND HILAR STRUCTURES: No masses or contour abnormalities. HEART AND VASCULAR STRUCTURES: Heart normal size. No evidence for failure. BONES: No acute findings. HARDWARE: None in the chest. OTHER: No other significant finding. IMPRESSION: POSSIBLE EARLY PNEUMONIA IN THE LEFT LOWER LOBE. TECHNICAL DOCUMENTATION: JOB ID: [id number] 2010 [employer]- All Rights Reserved Reading location - IP/workstation name: [email or web address]
[2019-10-30] MEDS ORDERED: AZITHROMYCIN 250 MG TABLET PO ONE (13:45)
[2019-10-30] MEDS ORDERED: ACETAMINOPHEN 325 MG TABLET PO ONE (14:00)
[2019-10-30 14:09] VITALS: BP 121/64
== END 2019-10-30 14:07 | disposition home or self-care (01) ==
LOC: ER 11:44
DX: J18.9 Pneumonia, unspecified organism (principal); R05 Cough; M79.10 Myalgia, unspecified site; Z88.0 Allergy status to penicillin
CPT/HCPCS: 99283; 71046; J3490; Q0144

== ENCOUNTER 2020-07-21 09:34 | Emergency (ER) | payer MEDICAID ==
--- NOTE | 2020-07-21 10:30 | ER Document Report ---
ED Medical Screen (RME) - General Chief Complaint: Abdominal Pain Stated Complaint: ABDOMINAL PAIN Time Seen by Provider: 07/21/20 10:28 Mode of Arrival: Ambulatory Information source: Patient Notes: 30-year-old female presented to ED for complaint of abdominal pain just above the umbilicus. She does have a hernia that is reducible. She states she just gave to twins by on February 21. She states she noticed this bulging about a month later and it became very painful. She states sometimes the bulge is not there but when it is it is very painful. Right now she is having trouble going to the bathroom and the pain is much worse. She does smoke 5 cigarettes a day and drinks weekly. Patient is alert oriented respirations regular nonlabored speaking in full sentences I have greeted and performed a rapid initial assessment of this patient. A comprehensive ED assessment and evaluation of the patient, analysis of test results and completion of medical decision making process will be conducted by an additional ED providers. TRAVEL OUTSIDE OF THE [place] IN LAST 30 DAYS: No - Related Data Allergies/Adverse Reactions: Penicillins Allergy (Severe, Verified 10/24/19 10:00) Hives Past Medical History - Social History Frequency of alcohol use: Social Drug Abuse: None - Past Medical History Cardiac Medical History: Denies: Hx Coronary Artery Disease, Hx Heart Attack, Hx Hypertension Pulmonary Medical History: Reports: Hx Asthma - as child Denies: Hx Bronchitis, Hx COPD, Hx Pneumonia Neurological Medical History: Denies: Hx Cerebrovascular Accident, Hx Seizures Musculoskeltal Medical History: Denies Hx Arthritis Past Surgical History: Reports: Hx Section - Immunizations Hx Diphtheria, Pertussis, Tetanus Vaccination: Yes Physical Exam - Vital signs Vitals: Temp Pulse Resp BP Pulse Ox 98.3 F 87 18 132/64 H 99 07/21/20 09:40 07/21/20 09:40 07/21/20 09:40 07/21/20 09:40 07/21/20 09:40 Course - Vital Signs Vital signs: Temp Pulse Resp BP Pulse Ox 98.3 F 87 18 132/64 H 99 07/21/20 09:40 07/21/20 09:40 07/21/20 09:40 07/21/20 09:40 07/21/20 09:40
[2020-07-21 11:05] LABS: ABSOLUTE EOSINOPHILS # (AUTO) 0.3 10^3/uL (0.0-0.6); ABSOLUTE LYMPHOCYTES (AUTO) 2.9 10^3/uL (0.5-4.7); ABSOLUTE MONOCYTES (AUTO) 0.5 10^3/uL (0.1-1.4); ABSOLUTE NEUT (AUTO) 4.8 10^3/uL (1.7-8.2); BASOPHILS % (AUTO) 0.6 % (0-2); EOSINOPHILS % (AUTO) 3.6 % (0-6); HEMATOCRIT 40.4 % (36.0-47.0); HEMOGLOBIN 13.1 g/dL (12.0-15.5); LYMPHOCYTES % (AUTO) 33.7 % (13-45); MEAN CORPUSCULAR HEMOGLOBIN 29.7 pg (27.0-33.4); MEAN CORPUSCULAR HGB CONC 32.4 g/dL (32.0-36.0); MEAN CORPUSCULAR VOLUME 92 fl (80-97); MONOCYTES % (AUTO) 6.4 % (3-13); PLATELET COUNT 210 10^3/uL (150-450); RED CELL DISTRIBUTION WIDTH 13.6 % (11.5-14.0); SEGMENTED NEUTROPHILS % (AUTO) 55.7 % (42-78); TOTAL CELLS COUNTED % (AUTO) 100 %; WHITE BLOOD COUNT 8.5 10^3/uL (4.0-10.5)
[2020-07-21 11:09] LABS: APPEARANCE,URINE CLEAR; BILIRUBIN,URINE NEGATIVE (NEGATIVE); COLOR,URINE YELLOW; GLUCOSE, URINE NEGATIVE (NEGATIVE); KETONES,URINE NEGATIVE (NEGATIVE); LEUKOCYTE ESTERASE,URINE NEGATIVE (NEGATIVE); NITRITE,URINE NEGATIVE (NEGATIVE); PROTEIN,URINE NEGATIVE (NEGATIVE); UROBILINOGEN,URINE NEGATIVE mg/dL (<2.0)
--- NOTE | 2020-07-21 11:39 | RADIOLOGY REPORT (SQ) ---
EXAM DESCRIPTION: U/S ABDOMEN LIMITED W/O DOP IMAGES COMPLETED DATE/TIME: 07/21/2020 11:23 am REASON FOR STUDY: Reducible hernia just above the umbilicus COMPARISON: None. TECHNIQUE: Dynamic and static grayscale images acquired of the localized site of clinical concern an d recorded on PACS. Additional selected color Doppler and spectral images recorded. SITE OF CONCERN: SUPRAUMBILICAL REGION LIMITATIONS: None. FINDINGS: A 2.8 x 3.0 x 2.1 cm mass lies superior to the umbilicus which appears to contain some fat and small amount of free fluid. No sonographic evidence of dilated bowel within the mass. This fin ding correlates to the clinically palpable mass. Considerations for this finding includes hernia. IMPRESSION: 1. The findings as described above may represent hernia correlating to the clinically p alpable mass. TECHNICAL DOCUMENTATION: JOB ID: [id number] 2010 [employer]- All Rights Reserved Reading location - IP/workstation name: [email or web address]
[2020-07-21 13:42] LABS: ALBUMIN 4.3 g/dL (3.5-5.0); ALKALINE PHOSPHATASE 63 U/L (38-126); ANION GAP 9 (5-19); ASPARTATE AMINO TRANSFERASE 21 U/L (14-36); BILIRUBIN,TOTAL 0.5 mg/dL (0.2-1.3); BLOOD UREA NITROGEN 16 mg/dL (7-20); CALCIUM 9.5 mg/dL (8.4-10.2); CARBON DIOXIDE 26 mmol/L (22-30); CHLORIDE 104 mmol/L (98-107); GLUCOSE 110 mg/dL (75-110); POTASSIUM 3.9 mmol/L (3.6-5.0); TOTAL PROTEIN 7.2 g/dL (6.3-8.2)
--- NOTE | 2020-07-21 14:29 | ER Document Report ---
HPI - HPI Patient complains to provider of: abdominal pain Time Seen by Provider: 07/21/20 10:28 Pain Level: Denies Context: 30-year-old female past medical history significant for anxiety and umbilical hernia presents to the emergency room complaining of worsening chronic abdominal pain that she has had since February 2019 when she developed an umbilical hernia after having a with twins. States that she feels like it has gotten more distended in the past 2 days. She denies any nausea, vomiting, no fevers. No urinary symptoms. Has not taken any medications for her symptoms. She is also complaining of a generalized rash to her upper extremities for 2 days. She denies any new medications. No foods. No recent travel. States she is been using cocoa butter lotion without relief. States it is itchy but does not burn. No other family members with a rash. Associated Symptoms: None Exacerbated by: Denies Relieved by: Denies Similar symptoms previously: No Recently seen / treated by doctor: No - ROS Systems Reviewed and Negative: Yes All other systems reviewed and negative - CONSTITUTIONAL Constitutional: DENIES: Fever - EENT EENT: DENIES: Sore Throat - NEURO Neurology: DENIES: Weakness - GASTROINTESTINAL Gastrointestinal: REPORTS: Abdominal Pain. DENIES: Nausea, Patient vomiting - URINARY Urinary: DENIES: Dysuria, Urgency, Frequency - REPRODUCTIVE Reproductive: DENIES: : - DERM Skin Color: Erythema Skin Problems: Rash Past Medical History - General Information source: Patient - Social History Smoking Status: Current Every Day Smoker Frequency of alcohol use: Social Drug Abuse: None Family History: Malignancy - Past Medical History Cardiac Medical History: Denies: Hx Coronary Artery Disease, Hx Heart Attack, Hx Hypertension Pulmonary Medical History: Reports: Hx Asthma - as child Denies: Hx Bronchitis, Hx COPD, Hx Pneumonia Neurological Medical History: Denies: Hx Cerebrovascular Accident, Hx Seizures Musculoskeletal Medical History: Denies Hx Arthritis Past Surgical History: Reports: Hx Section - Immunizations Hx Diphtheria, Pertussis, Tetanus Vaccination: Yes Vertical Provider Document - CONSTITUTIONAL Agree With Documented VS: Yes Exam Limitations: No Limitations General Appearance: Mild Distress - INFECTION CONTROL TRAVEL OUTSIDE OF THE [place] IN LAST 30 DAYS: No - HEENT HEENT: Atraumatic, Normocephalic - NECK Neck: Normal Inspection, Supple - RESPIRATORY Respiratory: Breath Sounds Normal, No Respiratory Distress, Chest Non-Tender - CARDIOVASCULAR Cardiovascular: Regular Rate, Regular Rhythm, No Murmur - GI/ABDOMEN Gastrointestinal: Abdomen Soft, Abdomen Tender - Tenderness around the umbilicus. Hernia was reduced earlier by Nelly Obrien NP., Normal Bowel Sounds. negative: Abdominal Guarding, Abdominal Rebound, No Organomegaly - MUSCULOSKELETAL/EXTREMETIES Musculoskeletal/Extremeties: FROM - NEURO Level of Consciousness: Awake, Alert, Appropriate Motor/Sensory: No Motor Deficit, No Sensory Deficit - DERM Integumentary: Warm, Dry, Rash - Patient with a very fine scattered erythematous rash. It is nontender or warm to palpation. No rough texture. No discharge or draining noted. Course - Re-evaluation Re-evalutation: 07/21/20 14:26 Patient is resting comfortably with decreased pain, reviewed all lab and ultrasound results with the patient. Counseled to take Benadryl, Zyrtec, or Claritin for her rash. She is to follow-up outpatient with a general surgeon for her umbilical hernia. Provided with on-call physician. Can take Tylenol and or Motrin as needed for pain. Patient was given strict return to the emergency room guidelines. Return for any new or worsening symptoms. All questions were answered. Patient verbalized understanding and agrees with plan of care. 07/22/20 00:05 07/22/20 00:07 - Vital Signs Vital signs: Temp Pulse Resp BP Pulse Ox 98.3 F 87 18 132/64 H 99 07/21/20 09:40 07/21/20 09:40 07/21/20 09:40 07/21/20 09:40 07/21/20 09:40 - Laboratory Result Diagrams: 07/21/20 10:50 07/21/20 13:10 - Diagnostic Test Radiology reviewed: Reports reviewed Discharge - Discharge Clinical Impression: Rash and nonspecific skin eruption Umbilical hernia Qualifiers: Obstruction and gangrene presence: without obstruction or gangrene Qualified Code(s): K42.9 - Umbilical hernia without obstruction or gangrene Condition: Stable Disposition: HOME, SELF-CARE Instructions: Contact Dermatitis ([facility]), Umbilical Hernia ([facility]) Additional Instructions: Tylenol or Motrin as needed for pain. Benadryl, Zyrtec, or Claritin as needed for itching. Outpatient follow-up with general surgery as discussed. Return to the emergency room for any new or worsening symptoms. Forms: Return to Work Referrals: KIERAN MARTINEZ MD [ACTIVE STAFF] - Follow up as needed
[2020-07-21 14:51] VITALS: BP 138/84
== END 2020-07-21 14:40 | disposition home or self-care (01) ==
LOC: ER 09:34
DX: K42.9 Umbilical hernia without obstruction or gangrene (principal); R21 Rash and other nonspecific skin eruption; R10.9 Unspecified abdominal pain; G89.29 Other chronic pain; F41.9 Anxiety disorder, unspecified; F17.200 Nicotine dependence, unspecified, uncomplicated; J45.909 Unspecified asthma, uncomplicated
CPT/HCPCS: 36415; 76705; 80053; 81001; 85025; 99284